=== PATIENT | male | born 1985 | race Caucasian/White ===

== ENCOUNTER 2016-11-22 05:50 | Emergency (ER) | payer OTHER ==
[2016-11-22 05:57] VITALS: BP 109/73; PULSE 57; RESP 16; TEMP 98.1; O2SAT 95
--- NOTE | 2016-11-22 06:03 | EDPHY ---
H & P Stated Complaint: rib injury/dove while playing frisbee 11/20 Time Seen by Provider: 11/22/16 05:59 HPI/ROS: CHIEF COMPLAINT: Right-sided rib pain HISTORY OF PRESENT ILLNESS: The patient is a 31-year-old man who comes to the emergency department complaining of right mid axillary rib pain at about the 10th or 11th rib. He states that this began on Monday after he dove for a Frisbee and landed on the ground. He has had moderate pain since that time but tonight heard a crunch when he took a deep breath and states that it has hurt more ever since then. He denies other injuries. He denies shortness of breath. REVIEW OF SYSTEMS: Constitutional: denies: chills, fever, recent illness, recent injury EENTM: denies: blurred vision, double vision, nose congestion Respiratory: denies: cough, shortness of breath Cardiac: denies: chest pain, irregular heart rate, lightheadedness, palpitations Gastrointestinal/Abdominal: denies: abdominal pain, diarrhea, nausea, vomiting, blood streaked stools Genitourinary: denies: dysuria, frequency, hematuria, pain Musculoskeletal: See HPI Skin: denies: lesions, rash, jaundice, bruising Neurological: denies: headache, numbness, paresthesia, tingling, dizziness, weakness Hematologic/Lymphatic: denies: blood clots, easy bleeding, easy bruising Immunologic/allergic: denies: HIV/AIDS, transplant EXAM: GENERAL: Well-appearing, well-nourished and in no acute distress. HEAD: Atraumatic, normocephalic. EYES: Pupils equal round and reactive to light, extraocular movements intact, sclera anicteric, conjunctiva are normal. ENT: TMs normal, nares patent, oropharynx clear without exudates. Moist mucous membranes. NECK: Normal range of motion, supple without lymphadenopathy or JVD. LUNGS: Breath sounds clear to auscultation bilaterally and equal. No wheezes rales or rhonchi. Is focal tenderness to right axillary lower ribs. Pain with deep inspiration HEART: Regular rate and rhythm without murmurs, rubs or gallops. ABDOMEN: Soft, nontender, normoactive bowel sounds. No guarding, no rebound. No masses appreciated. BACK: No CVA tenderness, no spinal tenderness, step-offs or deformities EXTREMITIES: Normal range of motion, no pitting or edema. No clubbing or cyanosis. NEUROLOGICAL: Cranial nerves II through XII grossly intact. Normal speech, normal gait. 5/5 strength, normal movement in all extremities, normal sensation PSYCH: Normal mood, normal affect. SKIN: Warm, dry, normal turgor, no visible rashes or lesions. Source: Patient Exam Limitations: No limitations - Personal History Current Tetanus/Diphtheria Vaccine: Yes - Medical/Surgical History Hx Asthma: No Hx Chronic Respiratory Disease: No Hx Diabetes: No Hx Cardiac Disease: No Hx Renal Disease: No Hx Cirrhosis: No Hx Alcoholism: No Hx HIV/AIDS: No Hx Splenectomy or Spleen Trauma: No Other PMH: PMHx: depression. PSHx: cosmetic lip surgery after dog bite - Family History Significant Family History: No pertinent family hx - Social History Smoking Status: Never smoked Alcohol Use: Sober Drug Use: None Constitutional: Initial Vital Signs Temperature (C) 36.7 C 11/22/16 05:53 Heart Rate 57 L 11/22/16 05:53 Respiratory Rate 16 11/22/16 05:53 Blood Pressure 109/73 11/22/16 05:53 O2 Sat (%) 95 11/22/16 05:53 O2 Delivery Mode Room Air Allergies/Adverse Reactions: No Known Allergies Allergy (Unverified 11/22/16 05:52) Home Medications: Medication Instructions Recorded Sertraline HCl [Zoloft 100mg (*)] 11/22/16 Medical Decision Making - Diagnostics Imaging Results: X-ray: chest x-ray was obtained. I viewed the images myself on the PACS system. My interpretation of the images is: negative for acute disease . The radiologist interpretation is pending. Imaging: I viewed and interpreted images myself ED Course/Re-evaluation: We discussed the x-ray results which are reassuring. I told him he likely has a nondisplaced fracture that we cannot see on x-ray. He does not have a pneumothorax. We discussed pain control and return to activity. He declines prescriptions. He is happy with these results and is eager to go home. He declines any further workup or testing. Differential Diagnosis: Partial list of the Differential diagnosis considered include but were not limited to; rib fracture, pneumothorax, contusion and although unlikely based on the history and physical exam, I also considered hemothorax, PE, acute coronary disease, dissection. I discussed these differential diagnoses and the plan with the patient as well as the usual and expected course. The patient understands that the diagnosis is provisional and that in medicine we are not always correct and that further workup is often warranted. Usual and customary warnings were given. All of the patient's questions were answered. The patient was instructed to return to the emergency department should the symptoms at all worsen or return, otherwise to followup with the physician as we discussed. Departure - Departure Disposition: Home, Routine, Self-Care Clinical Impression: Rib pain on right side Condition: Fair Instructions: Rib Fracture (ED) Referrals: NONE *PRIMARY CARE P,. [Primary Care Provider] - As per Instructions Yuli Rick MD [Doctor of Osteopathy] - As per Instructions
== END 2016-11-22 06:37 | disposition home or self-care (01) ==
DX: S29.9XXA Unspecified injury of thorax, initial encounter (principal); X58.XXXA Exposure to other specified factors, initial encounter; Y99.8 Other external cause status; Y93.74 Activity, frisbee